=== PATIENT | female | born 1955 | race Two or more races ===

== ENCOUNTER 2023-01-25 08:10 | Outpatient (CLI) | payer OTHER | END 2023-01-25 08:19 | disposition home or self-care (01) | LOC: TOM 08:10 | PROVIDERS: ATTEND Urology | DX: N20.1 Calculus of ureter (principal); N39.0 Urinary tract infection, site not specified | CPT/HCPCS: 74177; Q9965 ==

== ENCOUNTER 2023-08-20 10:24 | Outpatient (CLI) | payer OTHER | END 2023-08-20 10:54 | disposition home or self-care (01) | LOC: SONOGRAMA 10:24 | PROVIDERS: ATTEND Obstetrics & Gynecology Obstetrics | DX: R10.2 Pelvic and perineal pain (principal); D25.1 Intramural leiomyoma of uterus ==

== ENCOUNTER 2023-09-28 12:05 | Outpatient (CLI) | payer OTHER | END 2023-09-28 12:24 | disposition home or self-care (01) | LOC: MAMO-SONO 12:05 | PROVIDERS: ATTEND Obstetrics & Gynecology | DX: N60.11 Diffuse cystic mastopathy of right breast (principal); Z12.31 Encounter for screening mammogram for malignant neoplasm of breast; N60.12 Diffuse cystic mastopathy of left breast ==

== ENCOUNTER 2024-05-16 11:11 | Outpatient (CLI) | payer OTHER | END 2024-05-16 11:19 | disposition home or self-care (01) | LOC: SONOGRAMA 11:11 | DX: N20.0 Calculus of kidney (principal); E04.1 Nontoxic single thyroid nodule ==